=== PATIENT | female | born 1970 | race Caucasian/White ===

== ENCOUNTER 2016-09-16 19:31 | Emergency (ER) | payer BC ==
[2016-09-16] MEDS ORDERED: Sodium Chloride 0.9% 1,000 ML IV ONE (20:10)
[2016-09-16] MEDS ORDERED: Ondansetron 4 MG/2 ML SDV IV ONE (20:10)
[2016-09-16] MEDS ORDERED: HYDROmorphone 1 MG/ML Syringe IVPUSH ONE (20:20)
[2016-09-16 20:26] LABS: CHLORIDE,CL 97 mmol/L (101-111); SODIUM,NA 133 mmol/L (135-145)
[2016-09-16] MEDS ORDERED: Iopamidol 612 MG/ML 75 ML Bottle IVPUSH ONE (20:37)
[2016-09-16] MEDS ORDERED: Metoclopramide 10 MG/2 ML SDV IVPUSH ONE (22:27)
[2016-09-16 23:20] VITALS: BP 104/64
[2016-09-16] MEDS ORDERED: Ondansetron 4 MG Tab.DIS ONE (23:30)
[2016-09-16] MEDS ORDERED: Ondansetron 4 MG Tab.DIS PO ONE (23:30)
--- NOTE | 2016-09-16 23:33 | EDM.PDOC ---
ED HPI GI/ABDOMINAL - General Chief Complaint: Abdominal Pain Stated Complaint: ADB PAIN Time Seen by Provider: 09/16/16 19:45 Source of Information: Reports: Patient History Limitations: Reports: No limitations - History of Present Illness INITIAL COMMENTS - FREE TEXT/NARRATIVE: l/o generalized abdominal pain sharp with 2 week intermittent heavy period. Periods bcoming more irregular. Some nausea no vomiting. Timing/Duration: Reports: Day(s): Location: generalized Quality: Reports: burning, cramping Severity: moderate Associated Symptoms (-Female): Reports: denies other symptoms, loss of appetite. Denies: bloody stools - Related Data Allergies/ADRs: Allergies Allergy/AdvReac Type Severity Reaction Status Date / Time No Known Allergies Allergy Verified 09/16/16 19:41 Home Meds: Home Meds Aspirin/Caffeine [Mack Back & Body Caplet] 1 tab PO BID PRN 04/27/14 [History] Ranitidine [Zantac] 1 tab PO BEDTIME PRN 04/27/14 [History] Simethicone 1 tab PO BID PRN 04/27/14 [History] Tylenol Pm 1 tab PO BEDTIME PRN 04/27/14 [History] Past Medical History - Infectious Disease History Infectious Disease History: Reports: MRSA - Past Surgical History GI Surgical History: Reports: Bariatric procedure, Cholecystectomy, Other (see below) Other GI Surgeries/Procedures: tummy tuck all around ABD Social & Family History - Family History Family Medical History: Noncontributory - Tobacco Use Smoking Status *Q: Former Smoker Second Hand Smoke Exposure: No - Caffeine Use Caffeine Use: Reports: Tea - Alcohol Use Days Per Week of Alcohol Use: 0 - Recreational Drug Use Recreational Drug Use: No Drug Use in Last 12 Months: No ED ROS GENERAL - Review of Systems Review Of Systems: See Below Constitutional: Reports: chills Respiratory: Reports: No Symptoms Cardiovascular: Reports: Other Endocrine: Reports: no symptoms GI/Abdominal: Reports: Abdominal pain. Denies: Black stool : Reports: irregular menses Musculoskeletal: Reports: no symptoms Skin: Reports: no symptoms, other. Denies: jaundice Neurological: Reports: No Symptoms Hematologic/Lymphatic: Reports: anemia (hx gastric bypass) ED EXAM, GI/ABD - Physical Exam Exam: See Below Exam Limited By: No limitations General Appearance: alert, moderate distress Eyes: bilateral: normal appearance, EOMI Ears: normal external exam Nose: normal inspection Throat/Mouth: Normal inspection Head: atraumatic, normocephalic Neck: normal inspection Respiratory/Chest: no respiratory distress, lungs clear, normal breath sounds Cardiovascular: normal peripheral pulses, regular rate, rhythm GI/Abdominal: normal bowel sounds, tenderness (generalized). No: distention, guarding (Female) Exam: Normal external exam, Vaginal bleeding (dark red some pooling lying for 15 minutes. no cervical dilitation, no lesions CMT negative). No: Adnexal tenderness, Cervical dilatation, Uterine tenderness Back Exam: normal inspection, full range of motion Extremities: pedal edema Neurological: alert, oriented, normal cognition Psychiatric: flat affect (poor eye contact) Skin Exam: Warm, Dry, Pallor Course - Vital Signs Last Recorded V/S: Last Vital Signs Temp 97.9 F 09/16/16 23:19 Pulse 74 09/16/16 23:19 Resp 16 09/16/16 23:19 BP 104/64 09/16/16 23:19 Pulse Ox 98 09/16/16 23:19 - Orders/Labs/Meds Labs: Laboratory Tests 09/16/16 09/16/16 09/16/16 Range/Units 19:55 19:55 21:44 WBC 6.0 (5.0-10.0) 10^3/uL RBC 4.48 (4.2-5.4) 10^6/uL Hgb 10.0 L (12.0-16.0) g/dL Hct 32.6 L (37.0-47.0) % MCV 72.8 L (80-100) fL MCH 22.3 L (27.0-34.0) pg MCHC 30.7 L (33.0-35.0) g/dL Plt Count 378 (150-450) 10^3/uL Neut % (Auto) 57.4 (42.2-75.2) % Lymph % (Auto) 27.0 (20.5-50.1) % [place] % (Auto) 13.8 H (2-8) % Eos % (Auto) 1.5 (1.0-3.0) % Baso % (Auto) 0.3 (0.0-1.0) % Sodium 133 L (135-145) mmol/L Potassium 3.5 L (3.6-5.0) mmol/L Chloride 97 L (101-111) mmol/L Carbon Dioxide 21.0 (21.0-31.0) mmol/L Anion Gap 18.5 BUN 8 (7-18) mg/dL Creatinine 0.8 (0.6-1.3) mg/dL Est Cr Clr Drug Dosing 78.30 mL/min Estimated GFR (MDRD) > 60 BUN/Creatinine Ratio 10.00 Glucose 102 (74-105) mg/dL Calcium 9.0 (8.4-10.2) mg/dl Total Bilirubin 0.2 (0.2-1.0) mg/dL AST 32 (10-42) IU/L ALT 18 (10-60) IU/L Alkaline Phosphatase 92 (42-121) IU/L Total Protein 7.5 (6.7-8.2) g/dl Albumin 3.6 (3.2-5.5) g/dl Globulin 3.9 Albumin/Globulin Ratio 0.92 Amylase 44 (28-100) U/L Lipase 23 (22-51) U/L HCG, Qual Negative Urine Color Yellow (YELLOW) Urine Appearance Slightly cloudy (CLEAR) Urine pH >= 9.0 (5.0-9.0) Ur Specific [place] 1.010 (1.005-1.030) Urine Protein 30 H (NEGATIVE) Urine Glucose (UA) Negative (NEGATIVE) Urine Ketones 15 H (NEGATIVE) Urine Occult Blood Large H (NEGATIVE) Urine Nitrite Negative (NEGATIVE) Urine Bilirubin Negative (NEGATIVE) Urine Urobilinogen 0.2 (0.2-1.0) mg/dL Ur Leukocyte Esterase Negative (NEGATIVE) Urine RBC 30-40 H /HPF Urine WBC 0-5 (0-5/HPF) /HPF Ur Epithelial Cells Few /HPF Urine Bacteria Few (0-FEW/HPF) /HPF Meds: Medications Discontinued Medications Generic Name Dose Route Start Last Admin Trade Name Freq PRN Reason Stop Dose Admin Hydromorphone HCl 1 mg 09/16/16 20:20 09/16/16 20:40 Dilaudid IVPUSH 09/16/16 20:21 1 mg ONETIME ONE Administration Sodium Chloride 1,000 mls @ 999 mls/hr 09/16/16 20:10 09/16/16 20:40 Normal Saline IV 09/16/16 21:10 999 mls/hr .BOLUS ONE Administration Iopamidol 75 ml 09/16/16 20:37 09/16/16 20:54 Isovue-300 (61%) IVPUSH 09/16/16 20:38 75 ml ONETIME ONE Administration Metoclopramide HCl 10 mg 09/16/16 22:27 09/16/16 22:39 Reglan IVPUSH 09/16/16 22:28 10 mg ONETIME ONE Administration Ondansetron HCl 4 mg 09/16/16 20:10 09/16/16 20:41 Zofran IV 09/16/16 20:11 4 mg ONETIME ONE Administration Ondansetron HCl Confirm 09/16/16 23:30 09/16/16 23:33 Zofran Odt Administered 09/16/16 23:31 Not Given [facility] Interpretation Free Text/Narrative:: CT abdomen pelvis negative Departure - Departure Time of Disposition: 23:30 Disposition: Home, Self-Care 01 Clinical Impression: Dysfunctional uterine bleeding, Anxiety Abdominal pain Qualifiers: Abdominal location: generalized Qualified Code(s): R10.84 - Generalized abdominal pain Instructions: Abdominal Pain, Adult, [id number] Referrals: PCP,Unobtain [Primary Care Provider] - Forms: ED Department Discharge Additional Instructions: zofran 4mg ODT one every 6 hours as needed for nausea follow up in clinic on sunday sooner if increased vaginal bleeding , weakness or dizziness ibuprofen 400mg or tylenol for discomfort
== END 2016-09-16 23:39 | disposition home or self-care (01) ==
LOC: DL.ED 19:31
DX: N93.8 Other specified abnormal uterine and vaginal bleeding (principal); F41.9 Anxiety disorder, unspecified; Z79.82 Long term (current) use of aspirin; Z90.49 Acquired absence of other specified parts of digestive tract; Z87.891 Personal history of nicotine dependence
CPT/HCPCS: 36415; 71010; 74177; 80053; 81001; 82150; 83690; 84703; 85025; 87081; 87430; 87804; 96361; 96374; 96375; 99284; A9270; J1170; J2405; J2765; J7030; Q9967

== ENCOUNTER 2017-10-07 08:56 | Emergency (ER) | payer BC ==
[2017-10-07 09:18] VITALS: BP 120/81
[2017-10-07] MEDS ORDERED: Sodium Chloride 0.9% 10 ML Syringe FLUSH PRN (09:18)
--- NOTE | 2017-10-07 09:30 | EDM.PDOC ---
ED HPI GENERAL MEDICAL PROBLEM - General Chief Complaint: Abdominal Pain Stated Complaint: [id number] AB PAIN Time Seen by Provider: 10/07/17 09:10 Source of Information: Reports: Patient, RN, RN Notes Reviewed History Limitations: Reports: No Limitations - History of Present Illness INITIAL COMMENTS - FREE TEXT/NARRATIVE: Pt presents to the ER with c/o low abdominal/pelvic pain. Patient states the pain began about 4 days ago and has progressively gotten worse. She states she had a normal menses around September 13, and has had spotting with passing of tissue and clots since then. Patient denies chances of . She states she has had one in the past when she was 19, which she did not carry to term, but aborted. Patient admits to fever and chills on and off. Denies N/V/D. Admits to lightheadedness and dizziness at times. She states she feels as if her abdomen is bloated and extends down into her thighs. Patient denies any issues with BM or urinary problems, as well as denying any abnormal vaginal discharge or odor. Patient rates the pain a 8/10. Patient admits to history of ovarian cysts. Onset: Gradual Onset Date: 10/03/17 Duration: Getting Worse Location: Reports: Abdomen Quality: Reports: Ache, Sharp, Stabbing, Throbbing Severity: Severe Improves with: Reports: None Worsens with: Reports: None Associated Symptoms: Reports: Fever/Chills, Nausea/Vomiting, Syncope, Weakness Bilateral Pelvic Pain Score (Numeric/FACES): 8 - Related Data Allergies Allergy/AdvReac Type Severity Reaction Status Date / Time No Known Allergies Allergy Verified 09/16/16 19:41 Home Meds: Home Meds Aspirin/Caffeine [Mack Back & Body Caplet] 1 tab PO BID PRN 04/27/14 [History] Ranitidine [Zantac] 1 tab PO BEDTIME PRN 04/27/14 [History] Tylenol Pm 1 tab PO BEDTIME PRN 04/27/14 [History] Past Medical History - Infectious Disease History Infectious Disease History: Reports: MRSA - Past Surgical History GI Surgical History: Reports: Bariatric Procedure, Cholecystectomy, Other (See Below) Social & Family History - Family History Family Medical History: Noncontributory - Tobacco Use Smoking Status *Q: Former Smoker Second Hand Smoke Exposure: No - Caffeine Use Caffeine Use: Reports: Tea - Alcohol Use Days Per Week of Alcohol Use: 0 - Recreational Drug Use Recreational Drug Use: No Drug Use in Last 12 Months: No ED ROS GENERAL - Review of Systems Review Of Systems: ROS reveals no pertinent complaints other than HPI. ED EXAM, GI/ABD - Physical Exam Exam: See Below Exam Limited By: No Limitations General Appearance: Alert, WD/WN, Moderate Distress Eyes: Bilateral: Normal Appearance, EOMI Ears: Normal External Exam, Hearing Grossly Normal Nose: Normal Inspection Throat/Mouth: Normal Inspection, Normal Voice, No Airway Compromise Head: Atraumatic, Normocephalic Neck: Normal Inspection, Supple, Non-Tender, Full Range of Motion Respiratory/Chest: No Respiratory Distress, Lungs Clear, Normal Breath Sounds, No Accessory Muscle Use, Chest Non-Tender Cardiovascular: Normal Peripheral Pulses, Regular Rate, Rhythm, No Edema, No Gallop, No JVD, No Murmur, No Rub GI/Abdominal Exam: Normal Bowel Sounds, Soft, No Distention, No Abnormal Bruit, Tender (Female) Exam: Deferred Rectal (Female) Exam: Deferred Back Exam: Normal Inspection, Paraspinal Tenderness Extremities: Normal Inspection, Normal Range of Motion, Non-Tender, No Pedal Edema, Normal Capillary Refill Neurological: Alert, Oriented, CN II-XII Intact, Normal Cognition, Normal Gait, Normal Reflexes, No Motor/Sensory Deficits Psychiatric: Normal Mood, Tearful Skin Exam: Warm, Dry, Intact, Normal Color, No Rash Lymphatic: No Adenopathy Course - Vital Signs Last Recorded V/S: Last Vital Signs Temp 98.8 F 10/07/17 08:57 Pulse 77 10/07/17 08:57 Resp 20 10/07/17 08:57 BP 120/81 10/07/17 08:57 Pulse Ox 100 10/07/17 08:57 - Orders/Labs/Meds Orders: Active Orders 24 hr Category Date Time Status Peripheral IV Care [RC] . DIRECTED Care 10/07/17 09:19 Active CULTURE BLOOD [BC] Stat Lab 10/07/17 09:33 Received CULTURE BLOOD [BC] Stat Lab 10/07/17 09:37 Received HCG QUALITATIVE,URINE [URCHEM] Stat Lab 10/07/17 09:19 Ordered UA W/MICROSCOPIC [URIN] Stat Lab 10/07/17 09:13 Ordered Sodium Chloride 0.9% [Normal Saline] 1,000 ml Med 10/07/17 11:19 Active IV .BOLUS Sodium Chloride 0.9% [Saline Flush] Med 10/07/17 09:18 Active 10 ml FLUSH ASDIRECTED PRN Blood Culture x2 Reflex Set [OM.PC] Stat Oth 10/07/17 09:19 Ordered Peripheral IV Insertion Adult [OM.PC] Stat Ot 10/07/17 09:19 Ordered Medication Orders Sodium Chloride (Normal Saline) 1,000 mls @ 175 mls/hr IV .BOLUS ONE Stop: 10/07/17 17:01 Sodium Chloride (Saline Flush) 10 ml FLUSH ASDIRECTED PRN PRN Reason: Keep Vein Open Last Admin: 10/07/17 09:50 Dose: 10 ml Labs: Laboratory Tests 10/07/17 10/07/17 10/07/17 Range/Units 09:13 09:19 09:33 WBC 7.7 (5.0-10.0) 10^3/uL RBC 3.80 L (4.2-5.4) 10^6/uL Hgb 7.5 L D (12.0-16.0) g/dL Hct 26.6 L (37.0-47.0) % MCV 70.0 L (80-100) fL MCH 19.7 L (27.0-34.0) pg MCHC 28.2 L (33.0-35.0) g/dL Plt Count 421 (150-450) 10^3/uL Neut % (Auto) 69.1 (42.2-75.2) % Lymph % (Auto) 19.4 L (20.5-50.1) % [place] % (Auto) 6.9 (2-8) % Eos % (Auto) 4.3 H (1.0-3.0) % Baso % (Auto) 0.3 (0.0-1.0) % Sodium (135-145) mmol/L Potassium (3.6-5.0) mmol/L Chloride (101-111) mmol/L Carbon Dioxide (21.0-31.0) mmol/L Anion Gap BUN (7-18) mg/dL Creatinine (0.6-1.3) mg/dL Est Cr Clr Drug Dosing mL/min Estimated GFR (MDRD) BUN/Creatinine Ratio Glucose (74-105) mg/dL Lactic Acid (0.5-2.2) mmol/L Calcium (8.4-10.2) mg/dl Total Bilirubin (0.2-1.0) mg/dL AST (10-42) IU/L ALT (10-60) IU/L Alkaline Phosphatase (42-121) IU/L Total Protein (6.7-8.2) g/dl Albumin (3.2-5.5) g/dl Globulin Albumin/Globulin Ratio Urine Color Light yellow (YELLOW) Urine Appearance Turbid (CLEAR) Urine pH 8.5 (5.0-9.0) Ur Specific [place] 1.015 (1.005-1.030) Urine Protein Trace H (NEGATIVE) Urine Glucose (UA) Negative (NEGATIVE) Urine Ketones Negative (NEGATIVE) Urine Occult Blood Large H (NEGATIVE) Urine Nitrite Negative (NEGATIVE) Urine Bilirubin Negative (NEGATIVE) Urine Urobilinogen 0.2 (0.2-1.0) mg/dL Ur Leukocyte Esterase Small H (NEGATIVE) Urine RBC >100 H /HPF Urine WBC 0-5 (0-5/HPF) /HPF Ur Epithelial Cells Few /HPF Urine Bacteria Few (0-FEW/HPF) /HPF Urine HCG, Qual Negative Blood Type Gel Antibody Screen 10/07/17 10/07/17 10/07/17 Range/Units 09:33 09:33 09:33 WBC (5.0-10.0) 10^3/uL RBC (4.2-5.4) 10^6/uL Hgb (12.0-16.0) g/dL Hct (37.0-47.0) % MCV (80-100) fL MCH (27.0-34.0) pg MCHC (33.0-35.0) g/dL Plt Count (150-450) 10^3/uL Neut % (Auto) (42.2-75.2) % Lymph % (Auto) (20.5-50.1) % [place] % (Auto) (2-8) % Eos % (Auto) (1.0-3.0) % Baso % (Auto) (0.0-1.0) % Sodium 136 (135-145) mmol/L Potassium 4.0 (3.6-5.0) mmol/L Chloride 102 (101-111) mmol/L Carbon Dioxide 26.0 (21.0-31.0) mmol/L Anion Gap 12.0 BUN 7 (7-18) mg/dL Creatinine 0.7 (0.6-1.3) mg/dL Est Cr Clr Drug Dosing 91.32 mL/min Estimated GFR (MDRD) > 60 BUN/Creatinine Ratio 10.00 Glucose 86 (74-105) mg/dL Lactic Acid 1.1 (0.5-2.2) mmol/L Calcium 8.9 (8.4-10.2) mg/dl Total Bilirubin 0.3 (0.2-1.0) mg/dL AST 23 (10-42) IU/L ALT 17 (10-60) IU/L Alkaline Phosphatase 63 (42-121) IU/L Total Protein 6.7 (6.7-8.2) g/dl Albumin 3.4 (3.2-5.5) g/dl Globulin 3.3 Albumin/Globulin Ratio 1.03 Urine Color (YELLOW) Urine Appearance (CLEAR) Urine pH (5.0-9.0) Ur Specific [place] (1.005-1.030) Urine Protein (NEGATIVE) Urine Glucose (UA) (NEGATIVE) Urine Ketones (NEGATIVE) Urine Occult Blood (NEGATIVE) Urine Nitrite (NEGATIVE) Urine Bilirubin (NEGATIVE) Urine Urobilinogen (0.2-1.0) mg/dL Ur Leukocyte Esterase (NEGATIVE) Urine RBC /HPF Urine WBC (0-5/HPF) /HPF Ur Epithelial Cells /HPF Urine Bacteria (0-FEW/HPF) /HPF Urine HCG, Qual Blood Type O POSITIVE Gel Antibody Screen Negative Meds: Medications Generic Name Dose Route Start Last Admin Trade Name Freq PRN Reason Stop Dose Admin Sodium Chloride 1,000 mls @ 175 mls/hr 10/07/17 11:19 Normal Saline IV 10/07/17 17:01 .BOLUS ONE Sodium Chloride 10 ml 10/07/17 09:18 10/07/17 09:50 Saline Flush FLUSH 10 ml ASDIRECTED PRN Administration Keep Vein Open Discontinued Medications Generic Name Dose Route Start Last Admin Trade Name Freq PRN Reason Stop Dose Admin Hydromorphone HCl 0.5 mg 10/07/17 09:37 10/07/17 09:55 Dilaudid IVPUSH 10/07/17 09:38 0.5 mg ONETIME ONE Administration Sodium Chloride 1,000 mls @ 999 mls/hr 10/07/17 09:55 10/07/17 10:00 Normal Saline IV 10/07/17 10:55 999 mls/hr .BOLUS ONE Administration Iopamidol 75 ml 10/07/17 09:59 Isovue-300 (61%) IVPUSH 10/07/17 10:00 ONETIME ONE Morphine Sulfate 2 mg 10/07/17 10:56 10/07/17 11:17 Morphine IVPUSH 10/07/17 10:57 2 mg ONETIME ONE Administration Departure - Departure Time of Disposition: 11:19 Disposition: Home, Self-Care 01 Condition: Fair Clinical Impression: Anemia Qualifiers: Anemia type: unspecified type Qualified Code(s): D64.9 - Anemia, unspecified - Discharge Information Forms: ED Department Discharge, Interfacility Transfer EMTALA - My Orders Last 24 Hours: My Active Orders 10/07/17 09:13 UA W/MICROSCOPIC [URIN] Stat 10/07/17 09:18 Sodium Chloride 0.9% [Saline Flush] 10 ml FLUSH ASDIRECTED PRN 10/07/17 09:19 Peripheral IV Care [RC] . DIRECTED HCG QUALITATIVE,URINE [URCHEM] Stat Blood Culture x2 Reflex Set [OM.PC] Stat Peripheral IV Insertion Adult [OM.PC] Stat 10/07/17 09:33 CULTURE BLOOD [BC] Stat 10/07/17 09:37 CULTURE BLOOD [BC] Stat 10/07/17 11:19 Sodium Chloride 0.9% [Normal Saline] 1,000 ml IV .BOLUS - Assessment/Plan Last 24 Hours: My Active Orders 10/07/17 09:13 UA W/MICROSCOPIC [URIN] Stat 10/07/17 09:18 Sodium Chloride 0.9% [Saline Flush] 10 ml FLUSH ASDIRECTED PRN 10/07/17 09:19 Peripheral IV Care [RC] . DIRECTED HCG QUALITATIVE,URINE [URCHEM] Stat Blood Culture x2 Reflex Set [OM.PC] Stat Peripheral IV Insertion Adult [OM.PC] Stat 10/07/17 09:33 CULTURE BLOOD [BC] Stat 10/07/17 09:37 CULTURE BLOOD [BC] Stat 10/07/17 11:19 Sodium Chloride 0.9% [Normal Saline] 1,000 ml IV .BOLUS
[2017-10-07] MEDS ORDERED: HYDROmorphone 0.5 MG/0.5 ML Syringe IVPUSH ONE (09:37)
[2017-10-07] MEDS ORDERED: Sodium Chloride 0.9% 1,000 ML IV ONE ×2 (09:55→11:19)
[2017-10-07] MEDS ORDERED: Iopamidol 612 MG/ML 75 ML Bottle IVPUSH ONE (09:59)
[2017-10-07 10:02] LABS: CHLORIDE,CL 102 mmol/L (101-111); SODIUM,NA 136 mmol/L (135-145)
--- NOTE | 2017-10-07 10:47 | CT ---
Clinical history: 47-year-old 150 pound anemic female smoker with hemoglobin 7.5 who presents emergen cy department with lower, mid abdominal pain (history previous cholecystectomy and laparoscopic gastr ic bypass surgery November 2008). Vaginal spotting. Scan technique: Volume acquisition of data emergency CT scan of the abdomen and pelvis obtained witho ut oral contrast but during intravenous infusion nonionic Isovue patient was lying supine on the [employer] ens multi slice scanner [place], [place]. All data archived in the PAC S system for storage, reformatting and study. Interpretation: 1. High density medications or foreign bodies concentrated in normal caliber small intestinal loops a cross lower midline abdomen. 2. Evidence gastric bypass surgery (LUQ) and cholecystectomy (RUQ). 3. *Chronically enlarged, inhomogeneously dense, abnormal uterus unchanged in appearance when compare d directly to images previous CT scan, one year ago (16 September 2016). Myometrial degenerative changes and/or proliferative endometrium. 4. Ovarian adnexal cysts (largest on the right measures approximately 2 cm in diameter). No other pel daysi mass lesion or free fluid in the cul-de-sac. Diverticulosis sigmoid colon without associated sign s of inflammation. Symmetrically distended urinary bladder. 5. Liver, spleen, pancreas, adrenal glands and kidneys anatomically correct. No cortical mass, nephro lithiasis or obstruction. 6. Normal caliber aortoiliac vessels. Lumbar spine unremarkable. Normal heart. Lung bases clear. Norm al appendix RLQ. 7. No sign of abdominal wall, intraperitoneal, or retroperitoneal hematoma. No abdominal mass lesion, retroperitoneal lymphadenopathy, signs of mechanical bowel obstruction, ascites or free intraperiton eal air. CONCLUSION: No sign of acute bleed. Abnormal uterus (see above). Gastric bypass surgery and cholecyst ectomy.
[2017-10-07] MEDS ORDERED: Morphine 2 MG/ML Syringe IVPUSH ONE (10:56)
== END 2017-10-07 11:57 | disposition home or self-care (01) ==
LOC: DL.ED 08:56
DX: D64.9 Anemia, unspecified (principal); Z79.82 Long term (current) use of aspirin; Z87.891 Personal history of nicotine dependence
CPT/HCPCS: 36415; 74177; 80053; 81001; 81025; 83605; 85025; 86850; 86900; 86901; 87040; 96361; 96374; 96375; 99285; J1170; J2270; J7030; J7050; Q9967

== ENCOUNTER 2022-10-02 05:45 | Day surgery (SDC) | payer MEDICAID ==
[2022-10-02] MEDS ORDERED: Midazolam 1 MG/ML 2 ML SDV IV ONE ×8 (05:46→07:30)
[2022-10-02] MEDS ORDERED: fentaNYL 100 MCG/2 ML SDV IV ONE ×7 (05:46→07:29)
[2022-10-02] MEDS ORDERED: Sodium Chloride 0.9% 10 ML Syringe FLUSH PRN (06:00)
[2022-10-02] MEDS ORDERED: Dextrose 5%-0.45% NaCl 1,000 ML IV SCH (06:00)
[2022-10-02] MEDS ORDERED: fentaNYL 100 MCG/2 ML SDV ONE (07:03)
[2022-10-02] MEDS ORDERED: Midazolam 1 MG/ML 2 ML SDV ONE (07:03)
[2022-10-02] MEDS ORDERED: Sodium Chloride 0.9% 10 ML Syringe FLUSH SCH (09:00)
[2022-10-02 12:09] VITALS: BP 103/76; PULSE 82
== END 2022-10-02 11:20 | disposition home or self-care (01) ==
LOC: DL.ENDO 05:45
PROVIDERS: ATTEND Internal Medicine Gastroenterology
DX: K57.30 Diverticulosis of large intestine without perforation or abscess without bleeding (principal); Z98.890 Other specified postprocedural states
CPT/HCPCS: 45378; J2250; J3010; J7042